=== PATIENT | male | born 2000 | race Caucasian/White ===

== ENCOUNTER 2020-12-20 13:49 | Emergency (ER) | payer OTHER ==
[2020-12-20] MEDS ORDERED: EPIPEN 2-PAK1 MG/ML MR (15:04)
[2020-12-20 15:12] VITALS: BP 105/69
== END 2020-12-20 15:12 | disposition home or self-care (01) ==
LOC: ED 13:49
DX: T63.461A Toxic effect of venom of wasps, accidental (unintentional), initial encounter (principal)